=== PATIENT | female | born 1950 | race American Indian/Alaskan Native ===

== ENCOUNTER 2018-08-14 12:38 | Outpatient (REF) | payer MEDICARE, BC, SELFPAY ==
[2018-08-14 21:47] LABS: CREATININE 0.97 mg/dL (0.55-1.02); Estimated GFR 57.28 (mL/min/1.73m2)
[2018-08-14 22:02] LABS: Hemoglobin A1C 7.2 % (4.5-6.2)
== END 2018-08-14 12:58 ==
LOC: NCHCN 12:38
PROVIDERS: PCP Family Medicine; Visit Provider Family Medicine
DX: E11.9 Type 2 diabetes mellitus without complications (principal); I10 Essential (primary) hypertension
CPT/HCPCS: 82565; 83036

== ENCOUNTER 2018-11-19 13:37 | Outpatient (REF) | payer MEDICARE, BC, SELFPAY ==
[2018-11-19 21:44] LABS: Cholesterol 178 mg/dL (50-200); HDL Cholesterol 71 mg/dL (40-60); LDL CHOLESTEROL 89 mg/dL (<100); Triglyceride 110 mg/dL (30-150)
[2018-11-19 21:55] LABS: Hemoglobin A1C 7.5 % (4.5-6.2)
[2018-11-23 09:30] LABS: Hepatitis C Ab w Rflx HCV PCR Negative (NEGAT)
== END 2018-11-19 13:57 ==
LOC: NCHCN 13:37
PROVIDERS: PCP Family Medicine; Visit Provider Family Medicine
DX: E11.9 Type 2 diabetes mellitus without complications (principal); E78.5 Hyperlipidemia, unspecified; I10 Essential (primary) hypertension; Z11.59 Encounter for screening for other viral diseases
CPT/HCPCS: 80061; 83721; 86803; 83036

== ENCOUNTER 2019-05-18 14:23 | Outpatient (REF) | payer MEDICARE, BC, SELFPAY ==
[2019-05-18 22:03] LABS: HCT 37.3 % (36.0-46.0); HGB 12.9 g/dL (12.0-15.5); Mean Corp. HGB Concentration 34.6 g/dL (32.0-36.0); Mean Corpuscular Hemoglobin 31.6 pg (27.0-33.0); Mean Corpuscular Volume 91.4 fL (80-95); Mean Platelet Volume 12.1 fL (8.0-11.0); Platelet Count 182 x1000/uL (130-400); RBC 4.08 m/cumm (4.00-5.20); RBC Distribution Width 12.3 % (11.7-14.6); White Blood Cell Count 5.78 k/cumm (4.4-10.8)
[2019-05-18 22:43] LABS: COMMENT (LAB VIEW ONLY) 45.11 mg/dL; Microalb ug/mg Crea 10.2 ug/mg Cr
[2019-05-18 22:52] LABS: ALT 29 U/L (12-78); AST 25 U/L (15-37); Albumin 4.3 g/dL (3.4-5.0); Alkaline Phosphatase 94 U/L (46-116); Anion Gap 9.6 mmol/L (3-11); BUN 13 mg/dL (7-18); Bilirubin, Total 0.7 mg/dL (0.2-1.0); CO2 28.4 mmol/L (21.0-32.0); CREATININE 0.84 mg/dL (0.55-1.02); Calcium 9.2 mg/dL (8.5-10.1); Chloride 104 mmol/L (98-107); Glucose 126 mg/dL (70-100); Magnesium 2.1 mg/dL (1.8-2.4); Potassium 3.9 mmol/L (3.5-5.1); Sodium 142 mmol/L (136-145); TSH (W/Ref FT4) 1.53 uIU/mL (0.358-3.74); Total Protein 7.1 g/dL (6.4-8.2)
== END 2019-05-18 14:43 ==
LOC: NCHCN 14:23
PROVIDERS: PCP Family Medicine; Visit Provider Family Medicine
DX: E11.9 Type 2 diabetes mellitus without complications (principal); I10 Essential (primary) hypertension; E78.5 Hyperlipidemia, unspecified; E03.9 Hypothyroidism, unspecified; R00.2 Palpitations
CPT/HCPCS: 80053; 85027; 82043; 82570; 83735; 84443

== ENCOUNTER 2020-05-11 17:21 | Outpatient (REF) | payer MEDICARE, BC, SELFPAY ==
[2020-05-11 20:37] LABS: ALT 30 U/L (14-59); AST 23 U/L (15-37); Albumin 4.4 g/dL (3.4-5.0); Alkaline Phosphatase 74 U/L (46-116); Anion Gap 7.7 mmol/L (3-11); BUN 19 mg/dL (7-18); Bilirubin, Total 0.7 mg/dL (0.2-1.0); CO2 28.3 mmol/L (21.0-32.0); CREATININE 0.99 mg/dL (0.55-1.02); Calcium 9.6 mg/dL (8.5-10.1); Calculated LDL 62 mg/dL (<100); Chloride 104 mmol/L (98-107); Cholesterol 150 mg/dL (<200); Estimated GFR 55.61 (mL/min/1.73m2); Glucose 102 mg/dL (74-106); HDL Cholesterol 68 mg/dL (40-60); Potassium 4.2 mmol/L (3.5-5.1); Sodium 140 mmol/L (136-145); TSH 1.18 uIU/mL (0.36-3.74); Triglyceride 100 mg/dL (<150)
[2020-05-11 20:52] LABS: COMMENT (LAB VIEW ONLY) 94.65 mg/dL; Microalb ug/mg Crea 6.8 ug/mg Cr
== END 2020-05-11 17:41 ==
LOC: NCHCN 17:21
PROVIDERS: PCP Family Medicine; Visit Provider Family Medicine
DX: E11.9 Type 2 diabetes mellitus without complications (principal); E78.5 Hyperlipidemia, unspecified; I10 Essential (primary) hypertension; E03.9 Hypothyroidism, unspecified
CPT/HCPCS: 80053; 80061; 82043; 82570; 84443

== ENCOUNTER 2021-05-17 15:40 | Outpatient (REF) | payer MEDICARE, BC, SELFPAY ==
[2021-05-17 13:38] LABS: Hemoglobin A1C 6.8 % (<5.7)
[2021-05-17 13:51] LABS: ALT 27 U/L (14-59); AST 16 U/L (15-37); Albumin 4.2 g/dL (3.4-5.0); Alkaline Phosphatase 79 U/L (46-116); Anion Gap 12.3 mmol/L (3-11); BUN 19 mg/dL (7-18); Bilirubin, Total 0.7 mg/dL (0.2-1.0); CO2 25.7 mmol/L (21.0-32.0); CREATININE 0.9 mg/dL (0.55-1.02); Calcium 9.3 mg/dL (8.5-10.1); Calculated LDL 75 mg/dL (<100); Chloride 106 mmol/L (98-107); Cholesterol 165 mg/dL (<200); Glucose 140 mg/dL (74-106); HDL Cholesterol 72 mg/dL (40-60); Potassium 4.3 mmol/L (3.5-5.1); Sodium 144 mmol/L (136-145); TSH 1.04 uIU/mL (0.36-3.74); Triglyceride 91 mg/dL (<150)
== END 2021-05-17 15:41 | disposition home or self-care (01) ==
LOC: NCHCN 15:40
PROVIDERS: PCP Family Medicine; Visit Provider Family Medicine
DX: Z00.00 Encounter for general adult medical examination without abnormal findings (principal); E11.9 Type 2 diabetes mellitus without complications; E78.5 Hyperlipidemia, unspecified; E03.9 Hypothyroidism, unspecified; I10 Essential (primary) hypertension
CPT/HCPCS: 80053; 80061; 83036; 84443

== ENCOUNTER 2021-05-24 18:22 | Outpatient (REF) | payer MEDICARE, BC, SELFPAY ==
[2021-05-24 21:05] LABS: COMMENT (LAB VIEW ONLY) 85.96 mg/dL; Microalb ug/mg Crea 7.3 ug/mg Cr
== END 2021-05-24 18:23 | disposition home or self-care (01) ==
LOC: NCHCN 18:22
PROVIDERS: PCP Family Medicine; Visit Provider Family Medicine
DX: E11.9 Type 2 diabetes mellitus without complications (principal)
CPT/HCPCS: 82043; 82570

== ENCOUNTER 2022-05-17 09:49 | Outpatient (REF) | payer MEDICARE, BC, SELFPAY ==
[2022-05-17 15:48] LABS: Hemoglobin A1C 6.3 % (<5.7)
[2022-05-17 16:48] LABS: ALT 29 U/L (14-59); AST 23 U/L (15-37); Albumin 4.1 g/dL (3.4-5.0); Alkaline Phosphatase 67 U/L (46-116); Anion Gap 9.1 mmol/L (3-11); BUN 21 mg/dL (7-18); Bilirubin, Total 0.7 mg/dL (0.2-1.0); CO2 27.9 mmol/L (21.0-32.0); CREATININE 0.9 mg/dL (0.55-1.02); Calcium 9.1 mg/dL (8.5-10.1); Calculated LDL 93 mg/dL (<100); Chloride 104 mmol/L (98-107); Cholesterol 185 mg/dL (<200); Glucose 128 mg/dL (74-106); HDL Cholesterol 70 mg/dL (40-60); Sodium 141 mmol/L (136-145); TSH 1.92 uIU/mL (0.36-3.74); Triglyceride 113 mg/dL (<150)
== END 2022-05-17 09:50 | disposition home or self-care (01) ==
LOC: NCHCN 09:49
PROVIDERS: PCP Family Medicine; Visit Provider Family Medicine
DX: E11.9 Type 2 diabetes mellitus without complications (principal); E03.9 Hypothyroidism, unspecified; E78.5 Hyperlipidemia, unspecified
CPT/HCPCS: 80053; 80061; 83036; 84443

== ENCOUNTER 2022-05-24 14:43 | Outpatient (REF) | payer MEDICARE, BC, SELFPAY ==
[2022-05-24 16:30] LABS: COMMENT (LAB VIEW ONLY) 130.19 mg/dL; Microalb ug/mg Crea 5.1 ug/mg Cr
== END 2022-05-24 14:44 | disposition home or self-care (01) ==
LOC: NCHCN 14:43
PROVIDERS: PCP Family Medicine; Visit Provider Family Medicine
DX: E11.9 Type 2 diabetes mellitus without complications (principal)
CPT/HCPCS: 82043; 82570

== ENCOUNTER 2022-11-21 14:32 | Outpatient (REF) | payer MEDICARE, BC, SELFPAY ==
[2022-11-21 15:56] LABS: COMMENT (LAB VIEW ONLY) 52.02 mg/dL; Microalb ug/mg Crea 11.3 ug/mg Cr
== END 2022-11-21 14:33 | disposition home or self-care (01) ==
LOC: NCHCN 14:32
PROVIDERS: PCP Family Medicine; Visit Provider Family Medicine
DX: E11.9 Type 2 diabetes mellitus without complications (principal)
CPT/HCPCS: 82043; 82570

== ENCOUNTER 2023-04-15 14:54 | Outpatient (REF) | payer MEDICARE, BC, SELFPAY ==
[2023-04-15 22:00] LABS: Abs Immature Grans 0.02 10^3/uL (0.0-0.06); Absolute Basophil Count 0.04 10^3/uL (0.0-0.2); Absolute Eosinophil Count 0.05 10^3/uL (0.0-0.7); Absolute Lymphocyte Count 1.39 10^3/uL (1.2-3.4); Absolute Monocyte Count 0.57 10^3/uL (0.1-0.8); Absolute Neutrophil Count 6.25 10^3/uL (1.2-6.7); Basophils % 0.5; Eosinophils % 0.6; HCT 38.1 % (36.0-46.0); Immature Grans % 0.2; Lymphocytes % 16.7; MCHC 34.1 % (32.0-36.0); MCV 91 fL (80-95); MPV 11.4 fL (8.0-11.0); Monocytes % 6.9; Neutrophils % 75.1; Platelet Count 189 10^3/uL (130-400); RDW-SD 40.1 fL; WBC 8.32 10^3/uL (4.4-10.8)
[2023-04-15 23:50] LABS: ALT 27 U/L (14-59); AST 20 U/L (15-37); Albumin 4.2 g/dL (3.4-5.0); Alkaline Phosphatase 87 U/L (46-116); BUN 16 mg/dL (7-18); Bilirubin, Total 0.8 mg/dL (0.2-1.0); C-Reactive Protein 1.18 mg/dL (0.0-0.3); Calcium 9.4 mg/dL (8.5-10.1); Chloride 104 mmol/L (98-107); Estimated GFR 59.86 (mL/min/1.73m2); Glucose 111 mg/dL (74-106); Potassium 4.1 mmol/L (3.5-5.1); Sodium 141 mmol/L (136-145); TSH 1.07 uIU/mL (0.36-3.74); Total Protein 7.7 g/dL (6.4-8.2)
== END 2023-04-15 14:55 | disposition home or self-care (01) ==
LOC: NCHCN 14:54
PROVIDERS: PCP Family Medicine; Visit Provider Family Medicine
DX: K57.92 Diverticulitis of intestine, part unspecified, without perforation or abscess without bleeding (principal); R61 Generalized hyperhidrosis; R79.82 Elevated C-reactive protein (CRP)
CPT/HCPCS: 80053; 84443; 85025; 86140

== ENCOUNTER 2023-07-15 12:34 | Outpatient (REF) | payer MEDICARE, BC, SELFPAY ==
[2023-07-15 22:18] LABS: Abs Immature Grans 0.01 10^3/uL (0.0-0.06); Absolute Basophil Count 0.02 10^3/uL (0.0-0.2); Absolute Eosinophil Count 0.15 10^3/uL (0.0-0.7); Absolute Lymphocyte Count 0.43 10^3/uL (1.2-3.4); Absolute Monocyte Count 0.54 10^3/uL (0.1-0.8); Absolute Neutrophil Count 3.38 10^3/uL (1.2-6.7); Basophils % 0.4; Eosinophils % 3.3; HCT 33.1 % (36.0-46.0); HGB 11.5 g/dL (11.2-15.7); Immature Grans % 0.2; Lymphocytes % 9.5; MCH 31.3 pg (27.0-33.0); MCHC 34.7 % (32.0-36.0); MCV 90 fL (80-95); MPV 11.9 fL (8.0-11.0); Monocytes % 11.9; Neutrophils % 74.7; Platelet Count 133 10^3/uL (130-400); RBC 3.68 10^6/uL (3.93-5.22); RDW 12.1 % (11.7-14.6); WBC 4.53 10^3/uL (4.4-10.8)
[2023-07-15 22:40] LABS: ALT 52 U/L (14-59); AST 35 U/L (15-37); Albumin 3.5 g/dL (3.4-5.0); Alkaline Phosphatase 137 U/L (46-116); Anion Gap 7.3 mmol/L (3-11); BUN 17 mg/dL (7-18); Bilirubin, Total 0.8 mg/dL (0.2-1.0); CO2 27.7 mmol/L (21.0-32.0); CREATININE 1.1 mg/dL (0.55-1.02); Chloride 101 mmol/L (98-107); Estimated GFR 53.39 (mL/min/1.73m2); Glucose 174 mg/dL (74-106); Potassium 4.2 mmol/L (3.5-5.1); Sodium 136 mmol/L (136-145); TSH (W/Ref FT4) 1.27 uIU/mL (0.36-3.74); Total Protein 6.5 g/dL (6.4-8.2)
[2023-07-17 10:43] LABS: Lyme Ab w Rflx to Lyme Confirm Negative (Negative)
[2023-07-20 00:49] LABS: Anaplasma phagocytophilum Negative (Negative); B. miyamotoi PCR Negative (Negative); Babesia divergens/MO-1 Negative (Negative); Babesia duncani Negative (Negative); Babesia microti Negative (Negative); Ehrlichia chaffeensis Negative (Negative); Ehrlichia ewingii/canis Negative (Negative); Ehrlichia muris eauclairensis Negative (Negative)
== END 2023-07-15 12:35 | disposition home or self-care (01) ==
LOC: NCHCN 12:34
PROVIDERS: PCP Family Medicine; Visit Provider Family Medicine
DX: E03.9 Hypothyroidism, unspecified (principal); R61 Generalized hyperhidrosis; R50.9 Fever, unspecified; D61.818 Other pancytopenia; E80.6 Other disorders of bilirubin metabolism; Z11.8 Encounter for screening for other infectious and parasitic diseases
CPT/HCPCS: 80053; 87798; 84443; 85025; 86618

== ENCOUNTER 2023-07-24 09:43 | Outpatient (REF) | payer MEDICARE, BC, SELFPAY ==
[2023-07-24 14:51] LABS: Hemoglobin A1C 6.7 % (<5.7)
[2023-07-24 14:54] LABS: Calculated LDL 70 mg/dL (<100); Cholesterol 147 mg/dL (<200); HDL Cholesterol 59 mg/dL (40-60); Triglyceride 94 mg/dL (<150)
[2023-07-24 15:08] LABS: C-Reactive Protein 0.59 mg/dL (0.0-0.3)
== END 2023-07-24 09:44 | disposition home or self-care (01) ==
LOC: NCHCN 09:43
PROVIDERS: PCP Family Medicine; Visit Provider Family Medicine
DX: I10 Essential (primary) hypertension (principal); E78.5 Hyperlipidemia, unspecified; E11.9 Type 2 diabetes mellitus without complications; R61 Generalized hyperhidrosis; E03.9 Hypothyroidism, unspecified
CPT/HCPCS: 80061; 83036; 86140

== ENCOUNTER 2023-10-30 17:35 | Outpatient (REF) | payer MEDICARE, BC, SELFPAY ==
[2023-10-30 22:35] LABS: COMMENT (LAB VIEW ONLY) 44.51 mg/dL
== END 2023-10-30 17:36 | disposition home or self-care (01) ==
LOC: NCHCN 17:35
PROVIDERS: PCP Family Medicine; Visit Provider Family Medicine
DX: E11.9 Type 2 diabetes mellitus without complications (principal)
CPT/HCPCS: 82043; 82570

== ENCOUNTER 2023-12-02 12:52 | Outpatient (REF) | payer MEDICARE, BC, SELFPAY ==
[2023-12-02 21:29] LABS: Abs Immature Grans 0.01 10^3/uL (0.0-0.06); Absolute Basophil Count 0.03 10^3/uL (0.0-0.2); Absolute Eosinophil Count 0.09 10^3/uL (0.0-0.7); Absolute Lymphocyte Count 1.36 10^3/uL (1.2-3.4); Absolute Monocyte Count 0.45 10^3/uL (0.1-0.8); Absolute Neutrophil Count 2.96 10^3/uL (1.2-6.7); Basophils % 0.6; Eosinophils % 1.8; HCT 37.4 % (36.0-46.0); Immature Grans % 0.2; Lymphocytes % 27.8; MCH 30.8 pg (27.0-33.0); MCHC 34.8 % (32.0-36.0); MCV 89 fL (80-95); MPV 11.3 fL (8.0-11.0); Monocytes % 9.2; Neutrophils % 60.4; Platelet Count 161 10^3/uL (130-400); RBC 4.22 10^6/uL (3.93-5.22); RDW-SD 38.5 fL
[2023-12-02 21:39] LABS: ALT 27 U/L (14-59); AST 27 U/L (15-37); Albumin 4.3 g/dL (3.4-5.0); Alkaline Phosphatase 69 U/L (46-116); Anion Gap 6.8 mmol/L (3-11); BUN 15 mg/dL (7-18); Bilirubin, Total 0.8 mg/dL (0.2-1.0); CO2 29.2 mmol/L (21.0-32.0); Calcium 9.8 mg/dL (8.5-10.1); Chloride 103 mmol/L (98-107); Estimated GFR 59.86 (mL/min/1.73m2); Glucose 126 mg/dL (74-106); Lipase 45 U/L (16-77); Sodium 139 mmol/L (136-145); Total Protein 7.6 g/dL (6.4-8.2)
== END 2023-12-02 12:53 | disposition home or self-care (01) ==
LOC: NCHCN 12:52
PROVIDERS: PCP Family Medicine; Visit Provider Physician Assistant
DX: R10.9 Unspecified abdominal pain (principal)
CPT/HCPCS: 80053; 83690; 85025

== ENCOUNTER 2024-06-15 18:05 | Outpatient (REF) | payer MEDICARE, BC, SELFPAY ==
[2024-06-15 21:15] LABS: Absolute Basophil Count 0.03 10^3/uL (0.0-0.2); Absolute Eosinophil Count 0.06 10^3/uL (0.0-0.7); Absolute Lymphocyte Count 1.32 10^3/uL (1.2-3.4); Absolute Monocyte Count 0.48 10^3/uL (0.1-0.8); Absolute Neutrophil Count 3.47 10^3/uL (1.2-6.7); Basophils % 0.6 %; Eosinophils % 1.1 %; HCT 37.1 % (36.0-46.0); HGB 12.9 g/dL (11.2-15.7); Lymphocytes % 24.6 %; MCH 31.4 pg (27.0-33.0); MCHC 34.8 % (32.0-36.0); MCV 90 fL (80-95); MPV 11.2 fL (8.0-11.0); Neutrophils % 64.7 %; Platelet Count 173 10^3/uL (130-400); RBC 4.11 10^6/uL (3.93-5.22); RDW-SD 39.6 fL; WBC 5.36 10^3/uL (4.4-10.8)
[2024-06-15 21:49] LABS: ALT 29 U/L (14-59); AST 24 U/L (15-37); Albumin 4.4 g/dL (3.4-5.0); Alkaline Phosphatase 74 U/L (46-116); Anion Gap 11.9 mmol/L (3-11); BUN 13 mg/dL (7-18); Bilirubin, Total 0.59 mg/dL (0.2-1.0); CO2 27.1 mmol/L (21.0-32.0); Calcium 9.5 mg/dL (8.5-10.1); Chloride 102 mmol/L (98-107); Estimated GFR 59.49 (mL/min/1.73m2); Glucose 114 mg/dL (74-106); Lipase 38 U/L (16-77); Sodium 141 mmol/L (136-145); Total Protein 7.5 g/dL (6.4-8.2)
== END 2024-06-15 18:06 | disposition home or self-care (01) ==
LOC: NCHCN 18:05
PROVIDERS: PCP Family Medicine; Visit Provider Family Medicine
DX: R10.9 Unspecified abdominal pain (principal)
CPT/HCPCS: 80053; 83690; 85025

== ENCOUNTER 2024-09-02 15:47 | Outpatient (REF) | payer MEDICARE, BC, SELFPAY ==
[2024-09-02 17:07] LABS: Hemoglobin A1C 5.8 % (<5.7)
[2024-09-02 17:42] LABS: ALT 28 U/L (14-59); AST 27 U/L (15-37); Albumin 4.3 g/dL (3.4-5.0); Alkaline Phosphatase 79 U/L (46-116); BUN 12 mg/dL (7-18); Bilirubin, Total 0.72 mg/dL (0.2-1.0); CREATININE 0.9 mg/dL (0.55-1.02); Calcium 9.7 mg/dL (8.5-10.1); Calculated LDL 81 mg/dL (<100); Chloride 106 mmol/L (98-107); Cholesterol 184 mg/dL (<200); Glucose 131 mg/dL (74-106); HDL Cholesterol 88 mg/dL (40-60); Potassium 4.1 mmol/L (3.5-5.1); Sodium 144 mmol/L (136-145); TSH 1.88 uIU/mL (0.36-3.74); Total Protein 7.6 g/dL (6.4-8.2); Triglyceride 79 mg/dL (<150)
== END 2024-09-02 15:48 | disposition home or self-care (01) ==
LOC: NCHCN 15:47
PROVIDERS: PCP Family Medicine; Visit Provider Family Medicine
DX: E03.9 Hypothyroidism, unspecified (principal); E11.9 Type 2 diabetes mellitus without complications
CPT/HCPCS: 80053; 80061; 83036; 84443

== ENCOUNTER 2024-09-07 19:37 | Outpatient (REF) | payer MEDICARE, BC, SELFPAY ==
[2024-09-07 16:31] LABS: COMMENT (LAB VIEW ONLY) 36.62 mg/dL; Microalb ug/mg Crea 15.6 ug/mg Cr
== END 2024-09-07 19:38 | disposition home or self-care (01) ==
LOC: NCHCN 19:37
PROVIDERS: PCP Family Medicine; Visit Provider Family Medicine
DX: E11.9 Type 2 diabetes mellitus without complications (principal)
CPT/HCPCS: 82043; 82570

== ENCOUNTER 2024-09-15 14:58 | Outpatient (REF) | payer MEDICARE, BC, SELFPAY ==
[2024-09-15 21:13] LABS: Abs Immature Grans 0.01 10^3/uL (0.0-0.06); Absolute Basophil Count 0.04 10^3/uL (0.0-0.2); Absolute Lymphocyte Count 1.66 10^3/uL (1.2-3.4); Absolute Monocyte Count 0.48 10^3/uL (0.1-0.8); Absolute Neutrophil Count 3.29 10^3/uL (1.2-6.7); Basophils % 0.7 %; Eosinophils % 1.8 %; HCT 39.5 % (36.0-46.0); HGB 13.5 g/dL (11.2-15.7); Immature Grans % 0.2 %; Lymphocytes % 29.7 %; MCH 31.5 pg (27.0-33.0); MCHC 34.2 % (32.0-36.0); MCV 92 fL (80-95); MPV 11.2 fL (8.0-11.0); Monocytes % 8.6 %; Platelet Count 196 10^3/uL (130-400); RBC 4.29 10^6/uL (3.93-5.22); WBC 5.58 10^3/uL (4.4-10.8)
[2024-09-15 21:25] LABS: ALT 27 U/L (14-59); AST 28 U/L (15-37); Albumin 4.3 g/dL (3.4-5.0); Alkaline Phosphatase 85 U/L (46-116); Anion Gap 10.1 mmol/L (3-11); BUN 9 mg/dL (7-18); Bilirubin, Total 0.74 mg/dL (0.2-1.0); CO2 26.9 mmol/L (21.0-32.0); Calcium 9.7 mg/dL (8.5-10.1); Chloride 102 mmol/L (98-107); Estimated GFR 59.49 (mL/min/1.73m2); Glucose 107 mg/dL (74-106); Potassium 4.4 mmol/L (3.5-5.1); Sodium 139 mmol/L (136-145); Total Protein 7.8 g/dL (6.4-8.2)
[2024-09-16 10:20] LABS: C-Reactive Protein < 0.50 mg/dL (<or=0.5)
== END 2024-09-15 14:59 | disposition home or self-care (01) ==
LOC: NCHCN 14:58
PROVIDERS: PCP Family Medicine; Visit Provider Nurse Practitioner Family
DX: R10.9 Unspecified abdominal pain (principal)
CPT/HCPCS: 80053; 86141; 85025; 86140

== ENCOUNTER 2025-09-19 10:44 | Outpatient (REF) | payer MEDICARE, BC, SELFPAY ==
[2025-09-19 16:54] LABS: ALT 25 U/L (14-59); AST 26 U/L (15-37); Albumin 4.1 g/dL (3.4-5.0); Alkaline Phosphatase 72 U/L (46-116); Anion Gap 9.3 mmol/L (3-11); BUN 11 mg/dL (7-18); Bilirubin, Total 0.7 mg/dL (0.2-1.0); CO2 28.7 mmol/L (21.0-32.0); Calcium 9.5 mg/dL (8.5-10.1); Chloride 102 mmol/L (98-107); Cholesterol 157 mg/dL (<200); Glucose 122 mg/dL (74-106); HDL Cholesterol 77 mg/dL (>or=50); Potassium 3.9 mmol/L (3.5-5.1); Sodium 140 mmol/L (136-145); TSH 1.12 uIU/mL (0.36-3.74); Total Protein 7.4 g/dL (6.4-8.2)
[2025-09-19 17:16] LABS: Hemoglobin A1C 6.3 % (<5.7)
[2025-09-19 18:15] LABS: Microalb ug/mg Crea 11.6 ug/mg Cr
== END 2025-09-19 10:45 | disposition home or self-care (01) ==
LOC: NCHCN 10:44
PROVIDERS: PCP Family Medicine; Visit Provider Family Medicine
DX: E03.9 Hypothyroidism, unspecified (principal); E11.9 Type 2 diabetes mellitus without complications; E78.5 Hyperlipidemia, unspecified
CPT/HCPCS: 80053; 80061; 82043; 82570; 83036; 84443